=== PATIENT | male | born 2000 ===

== ENCOUNTER 2019-03-14 11:25 | Emergency (ER) | payer SELFPAY ==
[2019-03-14] MEDS ORDERED: Tetracaine HCl/PF 0.5% 4 ML Bottle EYEBOTH ONE (11:36)
--- NOTE | 2019-03-14 11:46 | EDM.PDOC ---
ED HPI GENERAL MEDICAL PROBLEM - General Chief Complaint: Eye Problems Stated Complaint: PEPPER SPRAYED Time Seen by Provider: 03/14/19 11:36 Source of Information: Reports: Patient History Limitations: Reports: No Limitations - History of Present Illness INITIAL COMMENTS - FREE TEXT/NARRATIVE: HISTORY AND PHYSICAL: History of present illness: Patient is a 18-year-old male resents the ED with complaint of upper spray to his eyes. He states that he was at the [employer] to get food when an argument between him and an employee occurred and he was prescribed. Patient's eyes were flushed in the EMS en route to the ED. He reports that he is not having any pain or burning at this time and no visual disturbances. Review of systems: As per history of present illness and below otherwise all systems reviewed and negative. Past medical history: As per history of present illness and as reviewed below otherwise noncontributory. Surgical history: As per history of present illness and as reviewed below otherwise noncontributory. Social history: No reported history of drug or alcohol abuse. Family history: As per history of present illness and as reviewed below otherwise noncontributory. Physical exam: General: Patient sitting comfortably in no acute distress and nontoxic appearing HEENT: Eyes are injected bilaterally with tearing noted. Atraumatic, normocephalic, pupils reactive, negative for conjunctival pallor or scleral icterus, mucous membranes moist, throat clear, neck supple, nontender, trachea midline. No meningeal signs. Lungs: Clear to auscultation, breath sounds equal bilaterally, chest nontender. Heart: S1S2, regular, negative for clicks, rubs, or overt murmur. Abdomen: Soft, nondistended, nontender. Negative for masses or hepatosplenomegaly. Negative for costovertebral tenderness. No rigidity, rebound , guarding. Pelvis: Stable nontender. Genitourinary: Deferred. Rectal: Deferred. Extremities: Atraumatic, negative for cords or calf pain. Neurovascular unremarkable. Neuro: Awake, alert, oriented. Cranial nerves II through XII unremarkable. Cerebellum unremarkable. Motor and sensory unremarkable throughout. Exam nonfocal. Notes: Poison control was contacted and recommended that patient have tetracaine eyedrops, 15 minutes of Ordrigo lens rinse, woodsamp exam with fluorescein, and a follow-up with ophthalmology. Patient only tolerated about 500mL of rinse. Patient refused woodslamp examination and demonstrates understanding that I cannot evaluated for abrasions or ulcerations without this and risks of infection and visual loss if he does not follow up with ophthalmology. Diagnostics: Woodslamp exam with fluorescein stain Therapeutics: Tetracaine ophthalmic Rodrigo lens flush Prescriptions: Polyrim ophthalmic Impression: Chemical conjunctivitis Plan: 1. Use eye drops as instructed. Tylenol or motrin as needed. 2. Follow up with ophthalmology, please call to make an appointment within the next 2 days. 3. Return to ED as needed as discussed Definitive disposition and diagnosis as appropriate pending reevaluation and review of above. Left Eye Pain Score (Numeric/FACES): 2 - Related Data Allergies Allergy/AdvReac Type Severity Reaction Status Date / Time No Known Allergies Allergy Verified 03/14/19 11:26 Home Meds: Home Meds . [No Known Home Meds] 03/14/19 [History] Past Medical History - Past Health History Medical/Surgical History: Denies Medical/Surgical History Oncologic (Cancer) History: Reports: None - Infectious Disease History Infectious Disease History: Reports: None Social & Family History - Family History Family Medical History: Noncontributory - Tobacco Use Smoking Status *Q: Current Every Day Smoker Years of Tobacco use: 13 Packs/Tins Daily: 0.5 - Caffeine Use Caffeine Use: Reports: Coffee - Recreational Drug Use Recreational Drug Use: No ED ROS GENERAL - Review of Systems Review Of Systems: ROS reveals no pertinent complaints other than HPI. ED EXAM GENERAL W FULL EYE - Physical Exam Exam: See Below (see dictation) Course - Vital Signs Last Recorded V/S: Last Vital Signs Temp 96.5 F 03/14/19 11:27 Pulse 62 03/14/19 11:27 Resp 16 03/14/19 11:27 BP 112/56 L 03/14/19 11:27 Pulse Ox 99 03/14/19 11:27 - Orders/Labs/Meds Meds: Medications Discontinued Medications Generic Name Dose Route Start Last Admin Trade Name Freq PRN Reason Stop Dose Admin Tetracaine HCl 1 ml 03/14/19 11:36 03/14/19 12:15 Tetracaine 0.5% Steri-Unit Karey EYEBOTH 03/14/19 11:37 1 dose ASDIRECTED ONE Administration Departure - Departure Time of Disposition: 13:27 Disposition: Home, Self-Care 01 Condition: Good Clinical Impression: Chemical conjunctivitis - Discharge Information Forms: ED Department Discharge Additional Instructions: The following information is given to patients seen in the emergency department who are being discharged to home. This information is to outline your options for follow-up care. We provide all patients seen in our emergency department with a follow-up referral. The need for follow-up, as well as the timing and circumstances, are variable depending upon the specifics of your emergency department visit. If you don't have a primary care physician on staff, we will provide you with a referral. We always advise you to contact your personal physician following an emergency department visit to inform them of the circumstance of the visit and for follow-up with them and/or the need for any referrals to a consulting specialist. The emergency department will also refer you to a specialist when appropriate. This referral assures that you have the opportunity for follow-up care with a specialist. All of these measure are taken in an effort to provide you with optimal care, which includes your follow-up. Under all circumstances we always encourage you to contact your private physician who remains a resource for coordinating your care. When calling for follow-up care, please make the office aware that this follow-up is from your recent emergency room visit. If for any reason you are refused follow-up, please contact the [facility] Emergency Department at and asked to speak to the emergency department charge nurse. [facility] [address] [place] [id number] [facility] [address] [place] [address] 1. Use eye drops as instructed. Tylenol or motrin as needed. 2. Follow up with ophthalmology, please call to make an appointment within the next 2 days. 3. Return to ED as needed as discussed
== END 2019-03-14 13:41 | disposition home or self-care (01) ==
LOC: MW.ED 11:25
DX: T59.91XA Toxic effect of unspecified gases, fumes and vapors, accidental (unintentional), initial encounter (principal); H10.213 Acute toxic conjunctivitis, bilateral; I10 Essential (primary) hypertension; F17.210 Nicotine dependence, cigarettes, uncomplicated
CPT/HCPCS: 99283